=== PATIENT | female | born 1995 | race Caucasian/White ===

== ENCOUNTER 2021-06-13 15:52 | Emergency (ER) | payer OTHER, SELFPAY ==
--- NOTE | 2021-06-13 15:53 | ED.SKABFB ---
HPI - Skin/Abscess/Foreign Bdy General Chief complaint: Skin/Abscess/Foreign Body Stated complaint: rash Time Seen by Provider: 06/13/21 15:53 Source: patient and RN notes reviewed Mode of arrival: ambulatory Limitations: no limitations History of Present Illness HPI narrative: 25-year-old female presents to the [facility] with complaints a rash. To the right posterior leg, lateral left and right chest. Patient states that started rubbing her about 24 May. Had gone to another urgent care on Thursday, primary care Thursday was prescribed prednisone and ketoconazole states is not getting any better. Has a history of anxiety. Denies any other past medical or surgical history. Related Data Home Medications Medication Instructions Recorded Confirmed bupropion HCl 150 mg PO DAILY 06/13/21 06/13/21 prednisone 20 mg PO USEASDIRECTD 06/13/21 06/13/21 Allergies Allergy/AdvReac Type Severity Reaction Status Date / Time Penicillins Allergy Rash Verified 06/13/21 16:04 Review of Systems Review of Systems: All systems reviewed & are unremarkable except as noted in HPI and below Constitutional: Constitutional: Reports no additional constitutional complaints, Denies chills and Denies fever(s) Eyes: Eyes: Reports no additional eye complaints ENT: Reports system reviewed and no additional complaints, except as documented Cardiovascular: Cardiovascular: Reports no additional cardiovascular complaints Respiratory: Respiratory: Reports no additional respiratory complaints Gastrointestinal: Gastrointestinal: Reports no additional gastrointestinal complaints Musculoskeletal: Musculoskeletal: Reports no additional musculoskeletal complaints Integumentary/Breasts: Skin/Breast: Reports as per HPI and Reports rash Neurologic: Reports system reviewed and no additional complaints, except as documented Psychiatric: Psychiatric: Reports no additional psychiatric complaints Allergic/Immunologic: Allergic/Immunologic: Reports no additional allergic/immunologic complaints [facility] Past Medical History Medical History (Updated 06/14/21 @ 11:03 by Priti Dozier) Anxiety Surgical History Surgical History (Updated 06/14/21 @ 11:03 by Priti Dozier) No significant past surgical history Social History Social History (Updated 06/14/21 @ 11:04 by Pirti Dozier) Substance use: never Living arrangements: with family Occupation/Education: student Gender identity (if verbalized by the patient): Female Comments At the time of my signature, I reviewed and agree with the nursing past medical, surgical, social, and family history. There is no relevant family history pertinent to the patient complaint. Exam Const: General: healthy appearing, no acute distress and alert Nutritional Appearance: well nourished Orientation/consciousness: patient oriented x3 Limitations: no limitations HENMT: Head: normal to inspection Ears: external ears normal, TM's normal bilaterally and EAC's normal Eyes: Conjunctivae: conjunctivae normal Pupils: Equal, round and reactive pupils present Neck: Neck: normal visual inspection, no lymphadenopathy and no meningeal signs Chest: Chest palpation & inspection: normal inspection of the chest Resp: Effort & Inspection: normal respiratory effort and no use of accessory muscles Auscultation: clear to auscultation bilaterally, no crackles, no rales, no rhonchi and no wheezes Cardio: Rate: regular rate Rhythm: regular rhythm GI: GI Palp: Yes Soft to palpation and No Tenderness to palpation present (GI) Back/Spine/Pelvis: Back: no CVA tenderness Skin: General skin exam: normal color Rashes: rashes noted Trauma: no lacerations or abrasions Wounds: no wounds Nails: normal Other: Red circular some irregular circles with raised red edges to the posterior right calf, lateral left and right chest. Patient describes as itching and burning. Neuro: General: patient oriented x3, moves all extremi
[2021-06-13 16:02] VITALS: BP 119/80; PULSE 112; RESP 12; TEMP 37.3; O2SAT 100
== END 2021-06-13 16:55 | disposition home or self-care (01) ==
PROVIDERS: Emergency Provider Nurse Practitioner
DX: B36.9 Superficial mycosis, unspecified (principal); F41.9 Anxiety disorder, unspecified
CPT/HCPCS: 99213; G0463

== ENCOUNTER 2024-11-01 11:08 | Outpatient (CLI) | payer OTHER, SELFPAY ==
--- NOTE | ~2024-11-01 | US_ITS ---
EXAMINATION TYPE: US breast LT limited COMPARISON: NONE REASON FOR STUDY: L upper outer breast pain TECHNIQUE: Targeted sonographic evaluation of the left breast was performed. INTERPRETATION: No solid or cystic lesion identified in the region scanned. No sonographic abnormality seen. IMPRESSION: No sonographic abnormality seen in the region scanned. BI-RADS CATEGORY: BI-RADS 1: Negative Reviewed, dictated and finalized at location .
== END 2024-11-01 11:09 | disposition home or self-care (01) ==
PROVIDERS: PCP Nurse Practitioner Family; Visit Provider Nurse Practitioner
DX: N64.4 Mastodynia (principal)
CPT/HCPCS: 76642